=== PATIENT | female | born 1935 | race Caucasian/White ===

== ENCOUNTER → 2016-06-15 | Outpatient (CLI) | payer OTHER, MEDICARE ==
[~2016-06-15] MED LIST: ASPEC81 PO; ATOR-22 PO; LEVO25TA5 PO; NUTR1TAB3 PO; TMB100 PO; TPRSR50 PO; XRL15 PO
--- NOTE | 2016-06-16 07:31 | MAMMOGRAPHY REPORT ---
BILATERAL DIGITAL SCREENING MAMMOGRAM WITH CAD: 06/15/2016 CLINICAL HISTORY: Routine screening. Patient has no complaints. TECHNIQUE: Current study was also evaluated with a Computer Aided Detection (CAD) system. Bilatera l CC and MLO views were obtained. COMPARISON: Comparison is made to exams dated: 12/14/2014 mammogram, 04/08/2013 mammogram, 03/29/2012 mammogram, 03/24/2010 mammogram, and 03/18/2009 mammogram - [facility]. BREAST COMPOSITION: There are scattered areas of fibroglandular density in both breasts. FINDINGS: No suspicious masses, calcifications, or areas of architectural distortion are noted in e ither breast. There has been no significant interval change compared to prior exams. Bilateral piero ign-appearing calcifications are not significantly changed, including loosely grouped calcifications in the right upper outer quadrant which are stable dating back to at least the 2012 exam. IMPRESSION: ACR BI-RADS CATEGORY 2: BENIGN There is no mammographic evidence of malignancy. A 1 year screening mammogram is recommended. The p atient will receive written notification of the results. Approximately 10% of breast cancers are not detected with mammography. A negative mammographic repor t should not delay biopsy if a clinically suggestive mass is present. Verito Boyce M.D. ah/:06/15/2016 15:29:28 [employer]: Missy Davalos, [facility] letter sent: Normal 1/2 BI-RADS Code: ACR BI-RADS Category 2: Benign
== END | disposition home or self-care (01) ==
LOC: C.MAMM 14:04
PROVIDERS: ATTEND Family Medicine
DX: Z12.31 Encounter for screening mammogram for malignant neoplasm of breast (principal)

== ENCOUNTER → 2016-12-06 | Outpatient (CLI) | payer OTHER, MEDICARE ==
[2016-12-06 11:51] LABS: CHOLESTEROL/HDL RATIO 2.1; THYROID STIMULATING HORMONE 1.47 uIu/ml (0.300-4.500)
== END | disposition home or self-care (01) ==
LOC: C.LABBC 09:04
PROVIDERS: ATTEND Internal Medicine Cardiovascular Disease
DX: E03.9 Hypothyroidism, unspecified (principal); I50.9 Heart failure, unspecified

== ENCOUNTER → 2017-03-01 | Outpatient (CLI) | payer OTHER, MEDICARE ==
[2017-03-01 14:11] LABS: THYROID STIMULATING HORMONE 0.975 uIu/ml (0.300-4.500)
== END | disposition home or self-care (01) ==
LOC: C.LABBC 10:05
PROVIDERS: ATTEND Internal Medicine Endocrinology, Diabetes & Metabolism
DX: E03.9 Hypothyroidism, unspecified (principal)

== ENCOUNTER → 2017-03-05 | Outpatient (CLI) | payer OTHER, MEDICARE ==
[2017-03-05 13:54] LABS: CHOLESTEROL/HDL RATIO 2.2
== END | disposition home or self-care (01) ==
LOC: C.LABBC 09:37
PROVIDERS: ATTEND Internal Medicine Cardiovascular Disease
DX: I25.10 Atherosclerotic heart disease of native coronary artery without angina pectoris (principal)

== ENCOUNTER → 2017-04-10 | Outpatient (CLI) | payer OTHER, MEDICARE | END | disposition home or self-care (01) | LOC: C.PATHSPEC 11:28 | PROVIDERS: ATTEND Urology | DX: C67.9 Malignant neoplasm of bladder, unspecified (principal) ==

== ENCOUNTER → 2017-04-12 | Outpatient (CLI) | payer OTHER, MEDICARE ==
[2017-04-12 14:15] LABS: BLOOD UREA NITROGEN 19 mg/dl (7-18); BUN/CREATININE RATIO 17.1 (10-20); CREATININE 1.14 mg/dl (0.60-1.20)
== END | disposition home or self-care (01) ==
LOC: C.LABBC 10:49
PROVIDERS: ATTEND Urology
DX: C67.9 Malignant neoplasm of bladder, unspecified (principal)

== ENCOUNTER → 2017-04-19 | Outpatient (CLI) | payer OTHER, MEDICARE ==
[~2017-04-19] MED LIST changes: +GADAVIST IV PRN
--- NOTE | 2017-04-19 14:04 | DIAGNOSTIC IMAGING REPORT ---
Study: Pelvic MRI HISTORY:: Transitional cell carcinoma of bladder FINDINGS: Bladder is collapsed. Moderate wall thickening of the superior aspect of the bladder wall. Signal characteristics, however are uniform. Several small bladder wall trabeculations. No significant pelvic or inguinal adenopathy. Signal characteristics the osseous structures show mild heterogeneity of signal secondary to age-related change. No true bone marrow replacing process is identified. Visualized components of bowel within the pelvis are unremarkable. Mild degenerative change of the sacroiliac joints. Mild degenerative change of the hips with no evidence for acetabular protrusion. IMPRESSION: 1. Collapse bladder creating lobulation of the bladder wall. 2. Moderate thickening of the superior margin of the bladder with cystoscopy recommended to exclude a true polypoid lesion. 3. The remainder the study is negative for age. 4. No evidence for metastatic change Electronically signed by: Gerson Villalpando M.D. 04/19/2017 2:02 PM Dictated Date/Time: 04/19/2017 1:54 PM
== END | disposition home or self-care (01) ==
LOC: C.MRIBC 12:23
PROVIDERS: ATTEND Urology
DX: C67.9 Malignant neoplasm of bladder, unspecified (principal)

== ENCOUNTER 2017-04-21 13:06 | Emergency (ER) | payer OTHER, MEDICARE ==
[~2017-04-21] VITALS: Ht 142.2 cm; Wt 57.0 kg
[~2017-04-21 13:06] MED LIST changes: -GADAVIST IV PRN
[2017-04-21 13:22] VITALS: TEMP 36.4; Ht 142.2 cm; Wt 57.0 kg
[2017-04-21] MEDS ORDERED: XRL15 PO (13:51)
--- NOTE | 2017-04-21 14:09 | EMERGENCY ROOM VISIT NOTE ---
History First contact with patient: 13:51 Chief Complaint: FACIAL PAIN/INJURY Stated Complaint: FELL AND HIT FACE History of Present Illness The patient is a 81 year old female who presents to the Emergency Room with complaints of a fall prior to arrival. The patient wasn't watching where she was going, and tripped. She landed on the sidewalk striking her nose. She did have a nosebleed. This has dissipated. She has a mild headache. She denies any neck pain. There is no loss of consciousness. No changes in vision. No nausea. The patient takes Xarelto for a history of A. fib. She denies any other injuries. Review of Systems 6 system review negative. Please see pertinent positives in the history of present illness section. Past Medical/Surgical History Medical Problems: (1) Afib (2) Atrial flutter Family History Patient reports no known family medical history. Social History Smoking Status: Never Smoker Marital Status: Housing Status: lives with family Occupation Status: retired Current/Historical Medications Scheduled Atorvastatin (Lipitor), 20 MG PO QAM Flecainide Acetate (Flecainide Acetate), 50 MG PO Q12 Levothyroxine Sodium (Levothyroxine Sodium), 25 MCG PO QAM Metoprolol Succinate (Metoprolol Succinate ER), 50 MG PO QAM Rivaroxaban (Xarelto), 15 MG PO DAILY Physical Exam Vital Signs Date Time Temp Pulse Resp B/P (MAP) Pulse Ox O2 Delivery O2 Flow Rate FiO2 04/21/17 15:59 63 20 167/87 97 Room Air 04/21/17 13:22 36.4 62 20 155/82 98 Room Air Physical Exam VITALS: Vitals are noted on the nurse's note and reviewed by myself. Vital signs stable. GENERAL: 81-year-old female, in no acute distress, nondiaphoretic, well- developed well-nourished. HEAD: Normocephalic atraumatic. EARS: External auditory canals clear, tympanic membranes pearly mcelroy without erythema or effusion bilaterally. EYES: Pupils equal round and reactive to light and accommodation. Conjunctivae without injection, sclerae without icterus. Extraocular movements intact. NOSE: Minor abrasions and swelling noted to the bridge of the nose. The septum is slightly edematous bilaterally. There is a small friable area noted on the right anterior septum. No active bleeding. MOUTH: Mucous membranes moist. No lacerations in the mouth. Teeth intact. MUSCULOSKELETAL:Strength 5/5 throughout. NEURO: Patient was alert and oriented to person place and time. Normal sensation to touch. No focal neurological deficits. Medical Decision & Procedures ER Provider Diagnostic Interpretation: Maxillofacial CT IMPRESSION: 1. Acute nondisplaced fractures of the right nasal bone and anterior nasal septum. 2. Nasal soft tissue swelling. Electronically signed by: Otis Salgado M.D. 04/21/2017 3:17 PM Dictated Date/Time: 04/21/2017 3:10 PM The status of this report is Signed. Draft = Not yet reviewed or approved by Radiologist. Signed = Reviewed and approved by Radiologist. <AttendingPhy></AttendingPhy> <FamilyPhy>Boaz Diana M.D.</FamilyPhy> < PrimaryPhy>Boaz Diana M.D.</PrimaryPhy> <UnitNumber>[id number]</ UnitNumber> <VisitNumber>[id number]</VisitNumber> CT head without contrast IMPRESSION: 1. No acute intracranial findings. 2. No calvarial fracture. Electronically signed by: Otis Salgado M.D. 04/21/2017 3:10 PM Dictated Date/Time: 04/21/2017 3:07 PM The status of this report is Signed. Draft = Not yet reviewed or approved by Radiologist. Signed = Reviewed and approved by Radiologist. <AttendingPhy></AttendingPhy> <FamilyPhy>Boaz Diana M.D.</FamilyPhy> < PrimaryPhy>Boaz Diana M.D.</PrimaryPhy> <UnitNumber>[id number]</ UnitNumber> <VisitNumber>[id number]</VisitNumber> <PatientName>EDER SORIA Flor< /PatientName> <DateOfBirth>1935</DateOfBirth> <Location>[facility]</Location> < ServiceDate>04/21/17</ServiceDate> <MNE>ESINDI</MNE> <OrderingPhy>Radha Hamm PA-C</OrderingPhy> <OrderingPhyMNE>f ED Course The patient was seen and examined Imaging was performed and reviewed The abrasions on her nose were cleansed thoroughly with chlorhexidine and dressed with bacitracin We discussed the results of her workup. She voiced understanding. The patient was also seen and examined by my supervising physician who is in agreement with my plan. Discharge instructions were reviewed, and he was discharged in good condition Medical Decision Differential diagnosis: Fracture, contusion, subdural hematoma, intracranial bleed, This patient is an 81-year-old female with a history of A. fib on anticoagulation that presented to the emergency department with a mechanical fall. She had swelling and abrasions to her nose. She did not have any other symptoms of head trauma. I opted to do a CT of the head due to the fact that she is on anticoagulation. This was negative for fracture or bleed. The maxillofacial CT confirms a nasal bone fracture and septal fracture. On exam, she does not have any signs of a septal hematoma. I believe she is stable to be discharged home. Her abrasions were cleansed. She will need follow-up with ENT. She will call in the next 2 days for a follow-up appointment. This chart was completed in part utilizing [employer] Speech Voice Recognition software. Attempts were made to minimize the grammatical errors, random word insertions, pronoun errors and incomplete sentences. Any formal questions or concerns about the content, text or information contained within the body of this dictation should be directly addressed to the provider for clarification. Medication Reconcilliation Current Medication List: was personally reviewed by me Blood Pressure Screening Patient's blood pressure: Elevated blood pressure Blood pressure disposition: Elevated BP felt to be situational Impression Primary Impression: Nasal bone fracture Departure Information Dispostion Home / Self-Care Condition CONVENIENCE OF AMBULANCE ASSISTANT Referrals No Doctor, Assigned (PCP) Esteban Cat MD Patient Instructions My [facility] Additional Instructions You were evaluated in the emergency department today for a fall and nasal injury. You do have a broken nose Please apply ice for 20 minute intervals as much as possible over the next 48 hours I would sleep with your head elevated Please call the ENT doctor on Sunday to make a follow-up appointment. a number has been provided. I would avoid all nasal sprays until seen by the ear nose and throat doctor You may take Tylenol 500 mg 1 tab every 4 hours as needed for pain Please do not hesitate to return to the emergency department with any new, worsening or concerning symptoms
[2017-04-21] MEDS ORDERED: LIDO/EPINEPHRINE/SOD BICARB 20 ML VIAL INFIL ONE (14:15)
--- NOTE | 2017-04-21 15:11 | DIAGNOSTIC IMAGING REPORT ---
CT OF THE HEAD WITHOUT CONTRAST CLINICAL HISTORY: Head injury on Xarelto. COMPARISON STUDY: No previous studies for comparison. TECHNIQUE: Helical axial images of the head were obtained without IV contrast. Automated exposure control was utilized for the study. A dose lowering technique was utilized adhering to the principles of ALARA. FINDINGS: No acute intracranial hemorrhage, midline shift or mass effect is present. Ventricular system is normal for age. Basilar cisterns are patent. There are no extra-axial collections. Martinez-white differentiation is maintained. There is no calvarial fracture. IMPRESSION: 1. No acute intracranial findings. 2. No calvarial fracture. Electronically signed by: Otis Salgado M.D. 04/21/2017 3:10 PM Dictated Date/Time: 04/21/2017 3:07 PM
--- NOTE | 2017-04-21 15:18 | DIAGNOSTIC IMAGING REPORT ---
MAXILLOFACIAL CT WITHOUT CONTRAST CLINICAL HISTORY: Fall with nasal injury. COMPARISON STUDY: None. TECHNIQUE: A maxillofacial CT was performed without IV contrast. Coronal and sagittal reformats were viewed. A dose lowering technique was utilized adhering to the principles of ALARA. FINDINGS: The globes are intact. There is no retrobulbar hematoma. There is nasal soft tissue swelling. There is an acute nondisplaced right nasal bone fracture. In addition, there is a suspected acute nondisplaced fracture of the anterior nasal septum shown best on coronal reformats. No additional facial fractures are present. No upper cervical spine or skull base fractures are identified. IMPRESSION: 1. Acute nondisplaced fractures of the right nasal bone and anterior nasal septum. 2. Nasal soft tissue swelling. Electronically signed by: Otis Salgado M.D. 04/21/2017 3:17 PM Dictated Date/Time: 04/21/2017 3:10 PM
[2017-04-21 15:59] VITALS: BP 167/87; PULSE 63; O2SAT 97
== END 2017-04-21 16:00 | disposition home or self-care (01) ==
LOC: C.EDB 13:10 → C.EDD 16:00
DX: S02.2XXA Fracture of nasal bones, initial encounter for closed fracture (principal); S00.31XA Abrasion of nose, initial encounter; W10.1XXA Fall (on)(from) sidewalk curb, initial encounter; I48.91 Unspecified atrial fibrillation; Z79.01 Long term (current) use of anticoagulants

== ENCOUNTER → 2017-04-27 | Outpatient (CLI) | payer OTHER, MEDICARE ==
[~2017-04-27] MED LIST changes: -ASPEC81 PO; -NUTR1TAB3 PO
== END | disposition home or self-care (01) ==
LOC: C.LABSPEC 10:58
PROVIDERS: ATTEND Urology
DX: C67.9 Malignant neoplasm of bladder, unspecified (principal)

== ENCOUNTER → 2017-07-06 | Outpatient (CLI) | payer OTHER, MEDICARE | END | disposition home or self-care (01) | LOC: C.LABBC 09:12 | PROVIDERS: ATTEND Internal Medicine Endocrinology, Diabetes & Metabolism | DX: E03.9 Hypothyroidism, unspecified (principal) ==

== ENCOUNTER → 2017-07-10 | Outpatient (CLI) | payer OTHER, MEDICARE | END | disposition home or self-care (01) | LOC: C.PATHSPEC 12:49 | PROVIDERS: ATTEND Urology | DX: C67.9 Malignant neoplasm of bladder, unspecified (principal) ==

== ENCOUNTER → 2017-12-18 | Outpatient (CLI) | payer OTHER, MEDICARE | END | disposition home or self-care (01) | LOC: C.LABBC 08:43 | PROVIDERS: ATTEND Internal Medicine Cardiovascular Disease | DX: E78.00 Pure hypercholesterolemia, unspecified (principal) ==

== ENCOUNTER → 2018-01-02 | Outpatient (CLI) | payer OTHER, MEDICARE | END | disposition home or self-care (01) | LOC: C.LAB1850 13:01 | PROVIDERS: ATTEND Internal Medicine Endocrinology, Diabetes & Metabolism | DX: E03.9 Hypothyroidism, unspecified (principal) ==